=== PATIENT | male | born 1960 | race Caucasian/White ===

== ENCOUNTER 2018-02-23 08:36 | Emergency (ER) | payer BC, OTHER ==
[2018-02-23] MEDS ORDERED: Adacel (T-DAP) 0.5 ML VIAL ONE (09:37)
[2018-02-23] MEDS ORDERED: Amoxicillin/Potassium Clav 875 MG TAB ONE (09:37)
[2018-02-23] MEDS ORDERED: Bacitracin Zinc 1 Packet ONE (10:11)
== END 2018-02-23 10:19 | disposition home or self-care (01) ==
LOC: MADERS 08:36
DX: S60.512A Abrasion of left hand, initial encounter (principal); S60.511A Abrasion of right hand, initial encounter; S50.812A Abrasion of left forearm, initial encounter; W55.01XA Bitten by cat, initial encounter
CPT/HCPCS: 90471; 90715; 99283

== ENCOUNTER 2023-11-19 17:15 | Outpatient (CLI) | payer BC | END 2023-11-19 17:16 | disposition home or self-care (01) | LOC: MADRAD 17:15 | PROVIDERS: ATTEND Surgery | DX: K40.90 Unilateral inguinal hernia, without obstruction or gangrene, not specified as recurrent (principal) | CPT/HCPCS: 93005; 93010 ==